=== PATIENT | male | born 1965 | race Caucasian/White ===

== ENCOUNTER 2017-12-08 09:17 | Emergency (ER) | payer OTHER ==
[~2017-12-08] VITALS: Ht 177.8 cm; Wt 81.7 kg
[2017-12-08] MEDS ORDERED: NORCO 7.5-3251 EACH PO (09:39)
[2017-12-08] MEDS ORDERED: VITAMIN B-1250 MCG PO (09:40)
[2017-12-08] MEDS ORDERED: VITAMIN D-32000 UNIT PO (09:40)
[2017-12-08] MEDS ORDERED: ENULOSE10 GM/15 M PO (09:45)
[2017-12-08] MEDS ORDERED: ANUSOL-HC25 MG PR (09:45)
== END 2017-12-08 09:50 | disposition home or self-care (01) ==
LOC: ED 09:17
DX: K64.4 Residual hemorrhoidal skin tags (principal)
CPT/HCPCS: 99283

== ENCOUNTER 2018-03-09 06:50 | Day surgery (SDC) | payer OTHER ==
[~2018-03-09] VITALS: Ht 180.3 cm; Wt 86.2 kg
[~2018-03-09 06:50] MED LIST: ANUSOL-HC25 MG PR; ENULOSE10 GM/15 M PO; NORCO 7.5-3251 EACH PO; VITAMIN B-1250 MCG PO; VITAMIN D-32000 UNIT PO
--- NOTE | 2018-03-09 07:20 | NUR ---
PAIN L FOOT AND L HIP HE ALWAYS HAS
--- NOTE | 2018-03-09 09:13 | NUR ---
03/09/18 0913 JuanTati 0857- PT ARRIVES TO PACU NON REACTIVE TO PAINFUL STIMULI. OXYGEN SAT HIGH 90'S ON 6L VIA NC. PT ON LL SIDE MAINTAINING HIS OWN AIRWAY. 0859- PT PASSING FLATUS. REMAINS NON REACTIVE TO PAIN. 0906- OXYGEN TITRATED TO 2L VIA NC. OXYGEN SAT REMAINS IN THE HIGH 90'S ON 2L. 0908- PT REACTIVE TO PAINFUL STIMULI AND STARTS FOLLOWING COMMANDS. DENIES ANY NAUSEA OR PAIN. 0912- OXYGEN TURNED OFF. OXYGEN REMAINS IN THE HIGH 90'S ON RA.
--- NOTE | 2018-03-09 10:18 | NUR ---
IN ROOM MOVING TRYING TO PASS FLATUS.
--- NOTE | 2018-03-09 10:54 | NUR ---
PT AMB IN ROOM LESS PAINFUL PASSING SMALL AMT FLATUS. DRESSED WANTS TO GO HOME. DC INSTRUCTIONS GIVEN NO QUESTIONS.
--- NOTE | 2018-03-09 17:33 | OR ---
[facility] [address] [place], [place] [address] Signed DATE OF OPERATION: 03/09/2018 SURGEON: Althea Garcia MD PREOPERATIVE DIAGNOSES: 1. Epigastric pain, occasional dysphagia. 2. Chronic hydrocodone use, currently undergoing weaning. 3. History of adenoma of colon 6 years ago. POSTOPERATIVE DIAGNOSES: 1. Normal-appearing colon. 2. Mild distal esophagitis without stricture and marginal flap valve. PROCEDURE PERFORMED: 1. Esophagogastroduodenoscopy with biopsy. 2. Total colonoscopy to cecum. ANESTHESIA: Intravenous sedation, propofol infusion. Latrice Hawk CRNA. INDICATION: This 52-year-old white man is a patient of Dr. Owens and has longstanding use of hydrocodone, for which a weaning program is underway. This was initiated initially for chronic back pain. The patient is known to me from the past and undergone colonoscopy with excision of an adenoma approximately 6 years ago. He has episodic diarrhea and constipation, but no blood per rectum. Additionally, he has some epigastric pain and occasional dysphagia. He is having no hematemesis. He is admitted at this time to undergo upper endoscopy and colonoscopy. He understands the risks of bleeding, infection, and perforation. FINDINGS: On upper endoscopy, he had mild distal esophagitis with a marginal flap valve. The stomach and duodenum were reasonably normal. Biopsies were taken nevertheless as there may be mild duodenitis. CLOtest was -15 minutes post procedure. Colonoscopy showed a well prepped colon. Complete colonoscopy was undertaken to the cecum without problem. There was no abnormality on colonoscopy and certainly no Electronically Signed By: ALTHEA GARCIA MD 03/09/18 1733 PATIENT NAME: DAVID SMITH OPERATIVE REPORT DATE OF : 65 REPORT #: [id number] PHYSICIAN: ALTHEA GARCIA MD PCP: DESTINY OWENS DO REPORT IS CONFIDENTIAL AND NOT TO BE RELEASED WITHOUT AUTHORIZATION [facility] [address] [place], [place] [address] Signed recurrent polyp. DESCRIPTION OF PROCEDURE: The patient was brought to the endoscopy suite and placed in lateral decubitus position. He was given intravenous sedation with propofol infusional technique by the embryology professor due to his advanced ASA classification related to chronic opioid use. A bite block was placed. An Olympus video upper endoscope was passed in the hypopharynx. The vocal cords were normal. Scope was advanced to the esophagus throughout its length. It was normal except in the distal portion, there was mild inflammatory change. There was no sign of Oliver's epithelium, stricture, or neoplasm. The scope was advanced to the stomach, which was insufflated with air. Rugal folds were normal as was the antral motility. The pylorus was normal. Scope was passed through into the duodenum. The 2nd and 3rd portions were normal. The bulbar portion had mild inflammation. Biopsies were taken of both the 2nd bulbar portions. The scope was withdrawn to the antrum where biopsies were taken for both VIJAY and pathologic testing. Retroflexed view was undertaken showing a marginal flap valve, but no sign of obvious hiatal hernia proper. The scope was withdrawn to the distal esophagus and biopsies were then obtained. Again, there was no sign of Oliver's epithelium. The remaining esophagus appeared normal. The scope was removed and plans made for colonoscopy. Additional sedation was given by the embryology professor. A digital rectal examination was found to be normal. An Olympus video colonoscope was passed in the rectum and manipulated throughout the colon ultimately intubating the cecum itself. The ileocecal valve and appendiceal orifice were normal. Photographs were taken. The scope was carefully withdrawn and examination throughout showed no sign of polyps, diverticular formation, colitis, or cancer. Retroflexed view was undertaken, which was normal as well. Scope was removed and the patient was taken to recovery room in good condition. CONCLUDING DIAGNOSES: 1. Mild distal esophagitis with associated poor flap valve. 2. Normal-appearing colon. No sign of recurrent adenoma. PLAN: We will prescribe Prilosec 20 mg p.o. daily. We will see him back in 6 weeks and assess his progress regarding symptoms. Althea Garcia MD Electronically Signed By: ALTHEA GARCIA MD 03/09/18 1733 PATIENT NAME: DAVID SMITH OPERATIVE REPORT DATE OF : 65 REPORT #: [id number] PHYSICIAN: ALTHEA GARCIA MD PCP: DESTINY OWENS DO REPORT IS CONFIDENTIAL AND NOT TO BE RELEASED WITHOUT AUTHORIZATION [address] [place], [place] [address] Signed CANDE/BRENDA /[id number] cc: Dr. Owens Copies: ~ Electronically Signed By: ALTHEA GARCIA MD 03/09/18 1733 PATIENT NAME: DAVID SMITH OPERATIVE REPORT DATE OF : 65 REPORT #: [id number] PHYSICIAN: ALTHEA GARCIA MD PCP: DESTINY OWENS DO REPORT IS CONFIDENTIAL AND NOT TO BE RELEASED WITHOUT AUTHORIZATION
== END 2018-03-09 10:45 | disposition home or self-care (01) ==
LOC: OPS 06:50 → DS 06:50 → OPS 08:00 → DS 08:00 → OPS 10:45
PROVIDERS: Surgery
PROC: 0DB38ZX Excision of Lower Esophagus, Via Natural or Artificial Opening Endoscopic, Diagnostic (ICD-10-PCS; 2018-03-09)
PROC: 0DJD8ZZ Inspection of Lower Intestinal Tract, Via Natural or Artificial Opening Endoscopic (ICD-10-PCS; 2018-03-09)
PROC: 0DB98ZX Excision of Duodenum, Via Natural or Artificial Opening Endoscopic, Diagnostic (ICD-10-PCS; principal; 2018-03-09 08:00)
PROC: 0DB78ZX Excision of Stomach, Pylorus, Via Natural or Artificial Opening Endoscopic, Diagnostic (ICD-10-PCS; 2018-03-09 08:00)
DX: K21.0 Gastro-esophageal reflux disease with esophagitis (principal); K62.5 Hemorrhage of anus and rectum; R19.7 Diarrhea, unspecified; K59.00 Constipation, unspecified; F32.9 Major depressive disorder, single episode, unspecified; F17.210 Nicotine dependence, cigarettes, uncomplicated; F11.20 Opioid dependence, uncomplicated; Z98.890 Other specified postprocedural states; Z86.010 Personal history of colon polyps; Z88.0 Allergy status to penicillin; Z79.899 Other long term (current) drug therapy
CPT/HCPCS: J1885; J2250; J2704; J3010; J7120

== ENCOUNTER 2018-06-29 13:13 | Emergency (ER) | payer OTHER ==
[~2018-06-29] VITALS: Ht 180.3 cm; Wt 86.2 kg
== END 2018-06-29 13:35 | disposition home or self-care (01) ==
LOC: ED 13:13
DX: M54.9 Dorsalgia, unspecified (principal)

== ENCOUNTER 2018-12-12 10:53 | Emergency (ER) | payer OTHER ==
[~2018-12-12] VITALS: Ht 180.3 cm; Wt 86.2 kg
--- OUTSIDE RECORDS SUMMARY | 2018-12-12 10:56 | XMS ---
PreManage Notification: DAVID SMITH Security Knotting Machine Operator Portable Events No recent Security Events currently on file CRITERIA MET - ANNMARIEP CARE PROVIDERS Chula Bray Current Mandeep POPE PHONE: Unknown Carly has no Care Guidelines for this patient. EZaire VISIT COUNT (12 MO.) 2 TOMASZ Herzog TOTAL 2 NOTE: Visits indicate total known visits. ED/UCC VISIT TRACKING (12 MO.) 12/12/2018 10:54 TOMASZ Mccabe [place] TYPE: Emergency COMPLAINT: - POSS HEMORRHOIDS 06/29/2018 13:14 TOMASZ Mccabe [place] TYPE: Emergency COMPLAINT: - BACK PAIN,NON INJURY DIAGNOSES: - Dorsalgia, unspecified INPATIENT VISIT TRACKING (12 MO.) No inpatient visits to display in this time frame [email or web address]
[2018-12-12] MEDS ORDERED: NORCO 7.5-3251 EACH PO (11:10)
== END 2018-12-12 11:08 | disposition home or self-care (01) ==
LOC: ED 10:53
DX: Z00.8 Encounter for other general examination (principal)

== ENCOUNTER 2021-01-25 14:32 | Emergency (ER) | payer OTHER ==
[~2021-01-25] VITALS: Ht 180.3 cm; Wt 90.7 kg
[2021-01-25] MEDS ORDERED: HYDROCODON-ACE1 EAC8 PO (14:50)
--- OUTSIDE RECORDS SUMMARY | 2021-01-25 16:38 | XMS ---
PreManage Notification: DAVID SMITH Security Drafting Clerk Events No recent Security Events currently on file CRITERIA MET - ANNMARIEP CARE PROVIDERS MARIA LUZ ODOM Physician Senior Nuclear Medicine Technologist 12/13/2018-Current PHONE: Unknown Carly has no Care Guidelines for this patient. EZaire VISIT COUNT (12 MO.) 1 TOMASZ Herzog TOTAL 1 NOTE: Visits indicate total known visits. ED/UCC VISIT TRACKING (12 MO.) 01/25/2021 14:34 TOMASZ Mccabe [place] TYPE: Emergency COMPLAINT: - HIGH B/P, TIGHTNESS IN CHEST, PAIN R NECK/ARM INPATIENT VISIT TRACKING (12 MO.) No inpatient visits to display in this time frame [id number]
--- NOTE | 2021-01-26 18:42 | EKG ---
[facility] [address] [facility] [place], [place] [address] Signed Sinus bradycardia Otherwise normal ECG No previous ECGs available Confirmed by SONG REYES DO ([id number]) on 01/26/2021 6:42:09 PM Electronically Signed By: SONG REYES DO 01/26/21 1842 PATIENT NAME: DAVID SMITH Electrocardiogram DATE OF : 65 PHYSICIAN: SONG REYES DO REPORT #: [id number] REPORT IS CONFIDENTIAL AND NOT TO BE RELEASED WITHOUT AUTHORIZATION
== END 2021-01-25 17:21 | disposition home or self-care (01) ==
LOC: ED 14:32
DX: G35 Multiple sclerosis (principal); M54.2 Cervicalgia; F17.200 Nicotine dependence, unspecified, uncomplicated; Z88.0 Allergy status to penicillin; Z91.030 Bee allergy status; Z79.899 Other long term (current) drug therapy
CPT/HCPCS: 71045; 80053; 83735; 84484; 85025; 93005; 93010; 99284-25

== ENCOUNTER 2022-03-02 10:06 | Emergency (ER) | payer OTHER ==
[~2022-03-02] VITALS: Ht 180.3 cm; Wt 88.5 kg
[~2022-03-02 10:06] MED LIST changes: +HYDROCODON-ACE1 EAC8 PO
--- OUTSIDE RECORDS SUMMARY | 2022-03-02 10:08 | XMS ---
PreManage Notification: DAVID SMITH Security Car Rental Clerk Events No recent Security Events currently on file CRITERIA MET - ANNMARIEP CARE PROVIDERS MARIA LUZ ODOM Physician Accountant Manager 01/26/2021-Current PHONE: Unknown Carly has no Care Guidelines for this patient. Paty VISIT COUNT (12 MO.) 1 TOMASZ Herzog TOTAL 1 NOTE: Visits indicate total known visits. ED/UCC VISIT TRACKING (12 MO.) 03/02/2022 10:07 TOMASZ Mccabe [place] TYPE: Emergency COMPLAINT: - SOB, HEATED, CHEST/BACK PAIN INPATIENT VISIT TRACKING (12 MO.) No inpatient visits to display in this time frame [id number]
[2022-03-02] MEDS ORDERED: RITUXAN10 MG/1 ML IV (10:28)
== END 2022-03-02 12:46 | disposition home or self-care (01) ==
LOC: ED 10:06
DX: R10.10 Upper abdominal pain, unspecified (principal); F17.200 Nicotine dependence, unspecified, uncomplicated; Z91.030 Bee allergy status; Z88.0 Allergy status to penicillin; Z79.899 Other long term (current) drug therapy
CPT/HCPCS: 36415; 76705; 80053; 81001; 83690; 85025; 96374; 96375; 96376; 99284-25; J1170; J1885; J2405

== ENCOUNTER 2022-04-15 05:40 | Day surgery (SDC) | payer OTHER ==
[~2022-04-15] VITALS: Ht 180.3 cm; Wt 89.0 kg
[~2022-04-15 05:40] MED LIST changes: +RITUXAN10 MG/1 ML IV
[2022-04-15] MEDS ORDERED: MELATONIN5 M2 PO (06:04)
--- NOTE | 2022-04-15 09:05 | NUR ---
04/15/22 0905 Zulay Luo 0902 PATIENT ARRIVES TO PACU UNRESPONSIVE TO PAIN, ORAL AIRWAY IN PLACE. RESP EVEN AND UNLABORED WITH INTERVENTION, MASK AT 10 LITERS, DECREASED TO 6 LITERS.
[2022-04-15] MEDS ORDERED: IBUPROFEN600 MG PO (09:22)
[2022-04-15] MEDS ORDERED: DILAUDID2 MG PO (09:24)
--- NOTE | 2022-04-15 10:22 | NUR ---
BHARATHI 1015 PATIENT BACK FROM PACU. REPORT RECIEVED FROM ANN MARIE HAYES. PATIENT IS DROWSY. PATIENT COMPLAINS OF 4/10 PAIN AT SURGICAL SITE. SURGICAL SITES ARE CLEAN, DRY AND INTACT. PATIENT DENIES FEELING NAUSEATED. BREATHING EQUAL AND UNLABORED. OXYGEN SATURATIONS MAINTAINING ABOVE 90% ON ROOM AIR. IVF INFUSING. SCD'S ON. PAITENT GIVEN WATER AND PUDDING. NO QUESTIONS AT THIS TIME. CALL LIGHT WITHIN REACH NO FUTHER NEEDS.
--- NOTE | 2022-04-15 11:26 | NUR ---
1115-PATIENT LAYING IN BED WITH EYES CLOSED. PATIENT IS DROWSY. RESP EVEN AND UNLABORED. PATIENT MOANING OFF AND ON, HANDS ON HIS STOMACH. RATES PAIN 4/10. DRESSINGS CLEAN, DRY, AND INTACT. VENITA HUGGER TURNED ON. LIGHT OFF. PATIENT TAKING SIPS OF WATER. CALL LIGHT WITHIN REACH. 1121-PAIN MEDICATION GIVEN PER EMAR.
--- NOTE | 2022-04-15 12:47 | NUR ---
1220-PATIENT IS DROWSY. RESP EVEN AND UNLABORED. RATES PAIN 4/10. PATIENT IS MOANING OFF AND ON HOLDING HIS STOMACH. UPPER DRESSING HAS A SMALL AMOUNT OF RED DRAIANGE. REINFORCED WITH A BANDAID. 1225-PATIENT UP TO RESTROOM. GAIT UNSTEADY BUT TOLERATED WELL. PATIENT VOIDED 300ML OF YELLOW URINE. 1230-PATIENT BACK TO ROOM. PATINET REQUESTING ANOTHER PAIN PILL. 1236-PAIN MEDICATION GIVEN PER EMAR. CALL LIGHT WITHIN REACH.
--- NOTE | 2022-04-15 13:26 | NUR ---
1313-PROVIDED PATIENT WITH DISCHARGE INSTRUCIONS. ALL QUESTIONS ANSWERED. RATES PAIN 4/10. ADVISED PATIENT TO SPLINT WITH A PILLOW WHEN NEEDED TO HELP WITH PAIN AND DISCUSSED PAIN MEDICATION. PATIENT VERBALIZED UNDERSTANDING. REINFORCED UPPER ABDOMINAL DRESSING WITH A LARGE BANDAID. ADVISED PATIENT TO CALL THE DOCTOR IF HE NOTICES EXCESSIVE DRAINAGE FROM SITES. RIDE PROVIDED TO [facility] WHERE HIS MOM WAS WAITING WITH THE CAR.
--- NOTE | 2022-04-17 14:34 | OR ---
[facility] [address] [place], [place] [address] Signed DATE OF OPERATION: 04/15/2022 SURGEON: Althea Garcia MD PREOPERATIVE DIAGNOSES: 1. Chronic acalculous cholecystitis. 2. Opioid dependency x20 years. 3. Multiple sclerosis. POSTOPERATIVE DIAGNOSES: 1. Chronic acalculous cholecystitis. 2. Opioid dependency x20 years. 3. Multiple sclerosis. PROCEDURES: 1. Laparoscopic cholecystectomy with intraoperative cholangiogram. 2. Surgeon-directed fluoroscopy. ANESTHESIA: General endotracheal; Althea Garcia CRNA; and local 20 mL of 0.25% Marcaine with epinephrine. INDICATION: This 56-year-old white man is well known to me from the past. He is a patient of MAYE Gillis. He has been evaluated over the years for symptoms highly suggestive of biliary disease. He does have multiple sclerosis and some chronic pain issues related to prior injuries. 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 He takes a considerable amount of opiate medication on routine basis and has for over 20 years and is quite clearly opioid dependent. He has been having now accelerating symptoms suggestive of biliary disease including epigastric and right subcostal pain, back pain, postprandial bloating, fullness, and so on. Gallbladder ultrasound was performed which showed no stones, but did show some sludge. A CCK-HIDA test was initiated, but he was completely intolerant of the material injected and the test was incomplete to say the least. Given his clinical findings highly suggestive of cholecystitis, I have recommended cholecystectomy. He understands the risks of bleeding, infection, bile duct injury, need for open rather than laparoscopic approach, need for common duct exploration and so forth. He also understands that it may not entirely cure his problem as he does have no doubt some symptoms of chronic constipation related to his opioid use. Understanding Electronically Signed By: ALTHEA GARCIA MD 04/17/22 1434 PATIENT NAME: DAVID SMITH OPERATIVE REPORT DATE OF : 65 REPORT #: [id number] PHYSICIAN: ALTHEA GARCIA MD PCP: MARIA LUZ ODOM PAC REPORT IS CONFIDENTIAL AND NOT TO BE RELEASED WITHOUT AUTHORIZATION [facility] [address] [place], [place] [address] Signed this, he wished to proceed. FINDINGS: Indeed the gallbladder was quite distended and chronically inflamed. There were dense omental adhesions to the entire surface of the gallbladder. The liver appeared normal. Cholangiogram was normal. Cholecystectomy was performed without complication. The mucosa showed chronic inflammatory change but no evidence of stones or neoplasm. DESCRIPTION OF PROCEDURE: The patient was brought to the operating room, given a general endotracheal anesthetic. Preoperative antibiotic of Ancef was given. Sequential compression thigh stockings used and heparin subcutaneously administered. The abdomen was clipped and prepared with a chlorhexidine solution and draped sterilely. An infraumbilical incision was made and using an open Porsha cannula technique pneumoperitoneum was achieved to a level of 14 mmHg with carbon dioxide gas. Intra-abdominal inspection showed no sign of ascites or carcinomatosis. The omentum was completely draped over all the liver obscuring upper abdominal organs. Three additional trocars were placed in usual configuration in the subxiphoid, right midclavicular, and right anterior axillary line. The omental pedicles were taken off the liver revealing the underlying gallbladder which was distended and chronically inflamed. The apex of the gallbladder was grasped and elevated cephalad and dense omental adhesions were noted. These were taken down with blunt and electrocautery dissection. Clips were applied to areas of omentum that had some oozing. Sequential dissection on the infundibulum allowed ultimately the gallbladder to be more fully revealed allowing for better elevation of gallbladder and retraction laterally. Using blunt electrocautery dissection the triangle of Calot was dissected free. Notably, the dominant cystic artery paralleled the cystic duct completely. Two cystic arteries were identified. Both were clipped and divided. Ultimately, the cystic duct was well skeletonized confirming the angle of the safety visualization. A clip was applied across gallbladder cystic duct junction and a transverse choledochotomy made in the cystic duct. Egress of clear bile was noted. Using the Dao-type cholangiocatheter, intraoperative cholangiography was undertaken showing free flow of contrast into the biliary tree with an emptying into the duodenum. Adjustment of the fluoroscope allowed for better visualization more proximally and showed the proximal biliary tree to have no sign of obstruction. The catheter was removed. The cystic duct was triply clipped and divided. The gallbladder dissected free in a retrograde fashion using electrocautery. Gallbladder was placed in an endobag and extracted through the infraumbilical port site opened on the back table and found to have chronic inflammatory changes. No sign of stones or neoplasm. Irrigation was undertaken in subhepatic space. Excess irrigation fluid was suctioned free. Some Maria Isabel powdered hemostatic agent was applied to the cystic ductal area as extensive dissection of the omental adhesions had allowed for some oozing. Excess irrigation Electronically Signed By: ALTHEA GARCIA MD 04/17/22 1434 PATIENT NAME: DAVID SMITH OPERATIVE REPORT DATE OF : 65 REPORT #: [id number] PHYSICIAN: ALTHEA GARCIA MD PCP: MARIA LUZ ODOM PAC REPORT IS CONFIDENTIAL AND NOT TO BE RELEASED WITHOUT AUTHORIZATION [facility] [address] [place], [place] [address] Signed fluid suctioned free. The trocars removed under direct visualization showing no sign of bleeding. The infraumbilical fascial incision was reapproximated with interrupted 0 Vicryl suture as well as an additional 0 PDS suture. The skin was then closed with interrupted 3-0 Vicryl after application of 20 mL of 0.25% Marcaine to the trocar sites. Steri-Strips were applied. The patient was extubated without incident, taken to recovery room in good condition having suffered no complications. Sponge, needle, and instrument counts reported as correct x3. MD CANDE Moreno/FELIXL /[id number] cc: MAYE Gillis Copies: ~ Electronically Signed By: ALTHEA GARCIA MD 04/17/22 1434 PATIENT NAME: DAVID SMITH OPERATIVE REPORT DATE OF : 65 REPORT #: [id number] PHYSICIAN: ALTHEA GARCIA MD PCP: MARIA LUZ ODOM PAC REPORT IS CONFIDENTIAL AND NOT TO BE RELEASED WITHOUT AUTHORIZATION
--- NOTE | 2022-04-20 06:18 | PATH ---
[facility] [address] [facility] [place], [place] [address] Signed SPECIMEN(S): A GALLBLADDER SPECIMEN SOURCE: A. GALLBLADDER CLINICAL HISTORY: Cholecystitis FINAL PATHOLOGIC DIAGNOSIS: Gallbladder, cholecystectomy: - Chronic cholecystitis. NRT:cml:C2NR MICROSCOPIC EXAMINATION: Histologic sections of all submitted blocks are examined by light microscopy. These findings, together with the gross examination, support the pathologic diagnosis. GROSS DESCRIPTION: The specimen, labeled "JL, E," and designated on the requisition "gallbladder," is received in formalin and consists of: Specimen: Previously incised gallbladder. Dimensions: Upon reconstruction, 9.2 x 3.7 x 2.8 cm. Serosa: Diaz-white, slightly wrinkled, and glistening. Cystic Duct: 0.5 cm in diameter, patent, and the margin is inked blue. Calculi: Absent within specimen and specimen container. Mucosa: Diaz, velvety to slightly denuded, and glistening. Wall thickness: 0.1 up to 0.2 cm. Lymph node: No pericystic lymph nodes are grossly identified. Additional: None. Associate Professor Of Kinesiology sections are submitted in cassette (A1). AI (under the direct supervision of a pathologist) The Gross Description was prepared using a voice recognition system. The report was reviewed for accuracy; however, sound-alike word errors, addition and/or deletions may occur. If there is any question about this report, please contact Client Services. PERFORMING LABORATORY: The technical component was performed by [facility], [address] [place] [id number] (CLIA# [id number]). Professional interpretation was performed by [facility] PATIENT NAME: DAVID SMITH PATHOLOGY DATE OF : 65 REPORT #: [id number] PHYSICIAN: MARCO PATHOLOGY PCP: MARIA LUZ ODOM PAC REPORT IS CONFIDENTIAL AND NOT TO BE RELEASED WITHOUT AUTHORIZATION [facility] [address] [place], [place] [address] Signed branch, [address] [place] [address], [place] [address] (CLIA# [id number]). Diagnostician: Nancy Motta MD Pathologist Electronically Signed 04/19/2022 Copies: ~ PATIENT NAME: DAVID SMITH PATHOLOGY DATE OF : 65 REPORT #: [id number] PHYSICIAN: MARCO PATHOLOGY PCP: MARIA LUZ ODOM PAC REPORT IS CONFIDENTIAL AND NOT TO BE RELEASED WITHOUT AUTHORIZATION
== END 2022-04-15 13:13 | disposition home or self-care (01) ==
LOC: DS 05:40
PROVIDERS: ATTEND Surgery
PROC: BF10YZZ Fluoroscopy of Bile Ducts using Other Contrast (ICD-10-PCS; 2022-04-15)
PROC: 0FT44ZZ Resection of Gallbladder, Percutaneous Endoscopic Approach (ICD-10-PCS; principal; 2022-04-15 07:30)
DX: K81.1 Chronic cholecystitis (principal); G35 Multiple sclerosis; F11.20 Opioid dependence, uncomplicated; F17.210 Nicotine dependence, cigarettes, uncomplicated; R13.19 Other dysphagia; F10.20 Alcohol dependence, uncomplicated; Z84.89 Family history of other specified conditions; Z88.0 Allergy status to penicillin
CPT/HCPCS: 74300; J0131; J0330; J0461; J0690; J1100; J1644; J1885; J2250; J2405; J2704; J2765; J3010; J7121; Q9967

== ENCOUNTER 2022-11-09 05:50 | Emergency (ER) | payer OTHER ==
[~2022-11-09] VITALS: Ht 180.3 cm; Wt 88.5 kg
[~2022-11-09 05:50] MED LIST changes: +DILAUDID2 MG PO; +IBUPROFEN600 MG PO; +MELATONIN5 M2 PO
--- OUTSIDE RECORDS SUMMARY | 2022-11-09 05:56 | XMS ---
PreManage Notification: DAVID SMITH Security Cake Former Events No recent Security Events currently on file CRITERIA MET - ANNMARIEP CARE PROVIDERS MARIA LUZ ODOM Physician Sand Slinger Operator 01/26/2021-Current PHONE: Unknown Carly has no Care Guidelines for this patient. Paty VISIT COUNT (12 MO.) 3 TOMASZ Herzog TOTAL 3 NOTE: Visits indicate total known visits. ED/UCC VISIT TRACKING (12 MO.) 11/09/2022 05:51 TOMASZ Mccabe [place] TYPE: Emergency COMPLAINT: - BP ISSUES,SWELLING 03/16/2022 08:15 TOAMSZ Mccabe OR TYPE: Emergency COMPLAINT: - DIFFICULTY BREATHING DIAGNOSES: - Allergy status to penicillin - Bee allergy status - Left upper quadrant pain - Nicotine dependence, unspecified, uncomplicated 03/02/2022 10:07 TOMASZ Mccabe [place] TYPE: Emergency COMPLAINT: - SOB, HEATED, CHEST/BACK PAIN DIAGNOSES: - Allergy status to penicillin - Bee allergy status - Nicotine dependence, unspecified, uncomplicated - Other retirement (current) drug therapy - Upper abdominal pain, unspecified INPATIENT VISIT TRACKING (12 MO.) No inpatient visits to display in this time frame [email or web address]
[2022-11-09] MEDS ORDERED: LACTULOSE10 GM/151 PO (06:18)
[2022-11-09] MEDS ORDERED: TAMSULOSIN HCL0.4 MG PO (06:19)
[2022-11-09 07:12] VITALS: BP 138/99
[2022-11-11] MEDS ORDERED: DICYCLOMINE HCL20 MG PO (00:07)
== END 2022-11-09 07:12 | disposition home or self-care (01) ==
LOC: ED 05:50
DX: G89.29 Other chronic pain (principal); R03.0 Elevated blood-pressure reading, without diagnosis of hypertension; F17.200 Nicotine dependence, unspecified, uncomplicated; G35 Multiple sclerosis; Z79.899 Other long term (current) drug therapy; Z88.0 Allergy status to penicillin; Z91.030 Bee allergy status
CPT/HCPCS: 36415; 71046; 80053; 81003; 85025; 99283-25

== ENCOUNTER 2022-11-11 22:17 | Emergency (ER) | payer OTHER ==
[~2022-11-11] VITALS: Ht 180.3 cm; Wt 88.5 kg
[~2022-11-11 22:17] MED LIST changes: +DICYCLOMINE HCL20 MG PO; +LACTULOSE10 GM/151 PO; +TAMSULOSIN HCL0.4 MG PO
--- OUTSIDE RECORDS SUMMARY | 2022-11-11 22:20 | XMS ---
PreManage Notification: DAVID SMITH Security Health And Safety Tech Events No recent Security Events currently on file CRITERIA MET - [facility] - 2 Visits in 30 Days CARE PROVIDERS MARIA LUZ ODOM Physician Ammunition Supervisor 01/26/2021-Current PHONE: Unknown Carly has no Care Guidelines for this patient. Paty VISIT COUNT (12 MO.) 4 [facility] TOTAL 4 NOTE: Visits indicate total known visits. ED/C VISIT TRACKING (12 MO.) 11/11/2022 22:18 TOMASZ Mccabe OR TYPE: Emergency COMPLAINT: - ABD PAIN 11/09/2022 05:51 TOMASZ Mccabe OR TYPE: Emergency COMPLAINT: - BP ISSUES,SWELLING DIAGNOSES: - Allergy status to penicillin - Bee allergy status - Elevated blood-pressure reading, without diagnosis of hypertension - Multiple sclerosis - Nicotine dependence, unspecified, uncomplicated - Other chronic pain - Other custodial (current) drug therapy 03/16/2022 08:15 TOMASZ Mccabe OR TYPE: Emergency COMPLAINT: - DIFFICULTY BREATHING DIAGNOSES: - Allergy status to penicillin - Bee allergy status - Left upper quadrant pain - Nicotine dependence, unspecified, uncomplicated 03/02/2022 10:07 TOMASZ Mccabe OR TYPE: Emergency COMPLAINT: - SOB, HEATED, CHEST/BACK PAIN DIAGNOSES: - Allergy status to penicillin - Bee allergy status - Nicotine dependence, unspecified, uncomplicated - Other intermediate frame tender (current) drug therapy - Upper abdominal pain, unspecified INPATIENT VISIT TRACKING (12 MO.) No inpatient visits to display in this time frame [id number]
[2022-11-12 00:25] VITALS: BP 141/74
== END 2022-11-12 00:31 | disposition home or self-care (01) ==
LOC: ED 22:17
DX: K58.1 Irritable bowel syndrome with constipation (principal); G35 Multiple sclerosis; F17.200 Nicotine dependence, unspecified, uncomplicated; Z88.0 Allergy status to penicillin; Z91.030 Bee allergy status; Z79.899 Other long term (current) drug therapy
CPT/HCPCS: 36415; 80053; 83690; 85025; 96372; 99283; J0500

== ENCOUNTER 2024-02-15 07:46 | Day surgery (SDC) | payer OTHER ==
[2024-02-12 09:49] VITALS: BP 122/84
[~2024-02-15] VITALS: Ht 180.3 cm; Wt 88.6 kg
[~2024-02-15 07:46] MED LIST changes: +BACLOFEN5 MG PO; +CEFAZOLIN SODIUM 2 GM/20 ML SYR IV SCH; +IBLOOD GLUCOSE TEST STRIP 1 EA TEST VI PRN; +LACTATED RINGER'S 1,000 ML IV SCH; +LIDOCAINE HCL 1% 5 ML SDV INJ ONE; +OCREVUS300 MG/10 IV
[2024-02-15] MEDS ORDERED: fentaNYL citrate 100 MCG/2 ML VIAL ONE (07:59)
[2024-02-15] MEDS ORDERED: propofoL 200 MG/20 ML VIAL ONE ×2 (08:00→09:25)
[2024-02-15] MEDS ORDERED: LIDOCAINE HCL 2% 5 ML SDV ONE (08:00)
[2024-02-15 08:03] VITALS: BP 129/84
[2024-02-15 10:34] VITALS: BP 124/86
--- NOTE | 2024-02-15 11:08 | NUR ---
02/15/24 1108 Pat Anthony 0958- PT ARRIVES TO PACU, LEFT LATERAL POSITION, NON REACTIVE TO STIMULUS. O2 AT 8L PER MASK, BREATHING EVEN AND NON LABORED. LR INFUSING TO RFA IV. ABD ROUND AND FIRM. ALL MONITORS IN PLACE. 1010- PT REACTIVE TO STIMULUS, OPENS EYES. REORIENTED TO TIME AND PLACE. ENCOURAGED PT TO PASS GAS, PT PASSES SMALL AMOUNT AT THIS TIME. 1012- PT MOVED TO ROOM AIR, TOLERATING WELL. CONTINUES TO REST INTERMITTENTLY AND PASS GAS. DR GARCIA AT BEDSIDE, TO DISCUSS FINDINGS. PT WAKES EASILY TO VERBAL STIMULI. 1024- PT REPORTS NEED TO URINATE. SAT PT UP IN BED, TOLERATING WELL. PT TO SIDE OF BED TO USE URINAL. CLEAR YELLOW URINE. 1030- PT REMAINS ON SIDE OF BED. NO NAUSEA OR DIZZINESS. PT DRINKING WATER AND TOLERATING WELL. CONTACTED A RIDE HOME. SALINE LOCK REMOVED, TIP INTACT, DRESSING APPLIED. PT TO GET DRESSED. 1040- PT DRESSED AND READY TO GO HOME. PT ALERT AND ORIENTED. NO SIGNS OF DISTRESS. VERBALIZED UNDERSTANDING OF INSTRUCTIONS. PT AMBULATING AT BASELINE WITH CANE AND TRANSFERRED TO WHEELCHAIR WITHOUT DIFFICULTY. PT TAKEN TO FRIEND VEHICLE WITH ALL BELONGINGS.
--- NOTE | 2024-02-18 13:47 | OR ---
[facility] [address], [place] [address] Signed DATE OF OPERATION: 02/15/2024 SURGEON: Althea Garcia MD PREOPERATIVE DIAGNOSES: 1. Constipation, long-standing opiate dependency for chronic pain. 2. Multiple sclerosis. POSTOPERATIVE DIAGNOSIS: Pedunculated polyp, right colon (excised). PROCEDURE: Total colonoscopy to cecum with hot snare polypectomy x1. ANESTHESIA: Intravenous sedation, propofol infusion; Triston Gross CRNA INDICATIONS FOR THE PROCEDURE: This 58-year-old white man is a patient of Maria Luz Odom, well known to me from the past. He last underwent colonoscopy in 2018. Colonoscopy was normal. The patient does have constipation related to chronic opiate use. The patient has multiple sclerosis as well. He uses hydrocodone and baclofen on a routine basis. He is admitted at this time to undergo surveillance colonoscopy, understand the risk of bleeding, infection, and perforation. FINDINGS: The prep was quite good overall. Complete colonoscopy was undertaken to the cecum with full intubation of the cecum. There was a pedunculated polyp, which was in the right colon, which was excised completely, dominantly with hot snare polypectomy technique. The remaining colon was normal. He did have some internal hemorrhoidal change. DESCRIPTION OF PROCEDURE: The patient was brought into surgical endoscopy suite and placed in the lateral decubitus position given intravenous sedation to the point of slurred speech and nystagmus with full cardiopulmonary monitoring by the business account leader using propofol infusional sedation technique. Digital rectal examination was performed and was normal. An Olympus video colonoscope was passed into the rectum and manipulated throughout the colon, ultimately intubating the cecum itself. The ileocecal valve and appendiceal orifice were normal. Scope was withdrawn in the mid to upper portion of the right Electronically Signed By: ALTHEA GARCIA MD 02/18/24 1347 PATIENT NAME: DAVID SMITH OPERATIVE REPORT DATE OF : 65 REPORT #: [id number] PHYSICIAN: ALTHEA GARCIA MD PCP: MARIA LUZ ODOM PAC REPORT IS CONFIDENTIAL AND NOT TO BE RELEASED WITHOUT AUTHORIZATION [facility] [address], [place] [address] Signed colon. A pedunculated polyp was noted. This was approximately 1.5 cm in size. Attempts at snaring the polyp were challenging on the basis of its position, ultimately accomplished fully. Unfortunately, the polyp was excised in portions rather than in one specimen, though it was not excessively large and certainly not suspicious otherwise. The scope was then withdrawn and examination of the remaining colon showed no sign of abnormality. Retroflexed view of the rectum was normal as well. The scope was removed. The patient was taken to the recovery room in good condition. CONCLUDING DIAGNOSIS: Polyps x1. PLAN: Recommend repeat colonoscopy in 3 years or sooner if symptoms should develop. We would have him continue with his MiraLAX as he is using now for his opiate-induced constipation. MD CANDE Moreno/BRENDA /[id number] cc: Maria Luz Odom PA-C Copies: ~ Electronically Signed By: ALTHEA GARCIA MD 02/18/24 1347 PATIENT NAME: DAVID SMITH OPERATIVE REPORT DATE OF : 65 REPORT #: [id number] PHYSICIAN: ALTHEA GARCIA MD PCP: MARIA LUZ ODOM PAC REPORT IS CONFIDENTIAL AND NOT TO BE RELEASED WITHOUT AUTHORIZATION
--- NOTE | 2024-02-20 17:13 | PATH ---
[facility] [address] [facility] [place] [place] [address] Signed SPECIMEN(S): A ASCENDING COLON POLYP SPECIMEN SOURCE: A. ASCENDING COLON POLYP CLINICAL HISTORY: Surveillance colonoscopy 2018, normal colon FINAL PATHOLOGIC DIAGNOSIS: Ascending colon polyp: - Tubular adenoma (three fragments). JVR:clv MICROSCOPIC EXAMINATION: Histologic sections of all submitted blocks are examined by light microscopy. These findings, together with the gross examination, support the pathologic diagnosis. GROSS DESCRIPTION: The specimen, labeled and designated "Channing, ascending colon polyp," is received in formalin and consists of four gonzalez soft tissue fragments, ranging from 0.1-0.5 cm. Entirely submitted in (A1). VB (under the direct supervision of a pathologist) The Gross Description was prepared using a voice recognition system. The report was reviewed for accuracy; however, sound-alike word errors, addition and/or deletions may occur. If there is any question about this report, please contact Client Services. PERFORMING LABORATORY: Technical component was performed by [facility], [address] [place] [id number] (CLIA# [id number]). Professional interpretation was performed by [facility], [address] [place] [id number] (CLIA#: [id number]). Diagnostician: Scott Parker MD Pathologist Electronically Signed 02/20/2024 Copies: PATIENT NAME: DAVID SMITH PATHOLOGY DATE OF : 65 REPORT #: [id number] PHYSICIAN: [facility] PCP: MARIA LUZ ODOM PAC REPORT IS CONFIDENTIAL AND NOT TO BE RELEASED WITHOUT AUTHORIZATION [address] [place] [address] Signed ~ PATIENT NAME: DAVID SMITH PATHOLOGY DATE OF : 65 REPORT #: [id number] PHYSICIAN: [facility] PCP: MARIA LUZ ODOM PAC REPORT IS CONFIDENTIAL AND NOT TO BE RELEASED WITHOUT AUTHORIZATION
== END 2024-02-15 10:40 | disposition home or self-care (01) ==
LOC: DS 07:46
PROVIDERS: ATTEND Surgery
PROC: 0DBE8ZX Excision of Large Intestine, Via Natural or Artificial Opening Endoscopic, Diagnostic (ICD-10-PCS; principal; 2024-02-15 09:00)
DX: Z12.11 Encounter for screening for malignant neoplasm of colon (principal); D12.2 Benign neoplasm of ascending colon; K64.8 Other hemorrhoids; G35 Multiple sclerosis; K59.03 Drug induced constipation; T40.605A Adverse effect of unspecified narcotics, initial encounter; F11.20 Opioid dependence, uncomplicated; F17.210 Nicotine dependence, cigarettes, uncomplicated; Z86.010 Personal history of colon polyps
CPT/HCPCS: 00811; J0690; J2001; J2704; J3010; J7121